=== PATIENT | male | born 1995 ===

== ENCOUNTER 2022-02-08 03:48 | Inpatient (IN) | payer MEDICAID ==
[2022-02-08] MEDS ORDERED: MAG HYDROX/AL HYDROX/SIMETH 30 ML CUP PO PRN (04:33)
[2022-02-08] MEDS ORDERED: HALOPERIDOL LACTATE 5 MG/ML 1 ML VIAL IM PRN (04:33)
[2022-02-08] MEDS ORDERED: ACETAMINOPHEN TAB 325 MG TAB PO PRN (04:33)
[2022-02-08] MEDS ORDERED: LORazepam 1 MG TAB PO PRN (04:33)
[2022-02-08] MEDS ORDERED: MAGNESIUM HYDROXIDE 2,400 MG/10 ML CUP PO PRN (04:33)
[2022-02-08] MEDS ORDERED: haloperidoL 5 MG TAB PO PRN (04:50)
[2022-02-08] MEDS ORDERED: LORazepam 2 MG/ML INJ IM PRN (04:50)
[2022-02-08] MEDS ORDERED: NICOTINE 14MG/24HR PATCH TRANSDERM SCH (09:00)
--- NOTE | 2022-02-08 18:00 | P.HPMEDMHU ---
History of Present Illness H&P Date: 02/08/22 Patient is a 26-year-old male with no known past medical history, alcohol dependency, and tobacco abuse who presented from [facility] for suicidal ideation and paranoia. Patient seen and examined at bedside. He reports feeling very anxious. He does not like people are new places him and make him feel very anxious and nervous. He is unsure if he should trust all of us. He reports to me that he fell about a month ago and has abrasions on his hand and his face and that he was on medications for this. He denies any recent cough, cold, fever, flu. He states he has been having some difficulty sleeping. He has been eating and drinking normally. Pertinent positives and negatives as discussed in HPI, a complete review of systems was performed and all other systems are negative. Vital signs reviewed General: nontoxic, no distress, appears at stated age Derm: warm, dry, multiple pinpoint abrasion on bilateral knuckles without warmth, erythema, drainage, healing abrasion on right zygomatic arch area. Head: atraumatic, normocephalic, symmetric Eyes: EOMI, no lid lag, anicteric sclera, pupils equal round reactive to light ENT: Nose and ears atraumatic, no thrush, no pharyngeal erythema Neck: No thyromegaly, no cervical lymphadenopathy, trachea midline, supple Mouth: no lip lesion, mucus membranes moist Cardiovascular: S1S2 reg, no murmur, positive posterior tibial pulse bilateral, no edema, capillary refill less than 2 seconds Lungs: clear to auscultation bilateral, no rhonchi, no rales, no wheeze, no accessory muscle use Abdominal: soft, nontender to palpation, no guarding, no appreciable organomegaly, normal bowel sounds Ext: no gross muscle atrophy, no contractures Neuro: CN II-XII grossly intact, no focal neuro deficits Psych: Alert, oriented, appears anxious, difficulty sitting Assessment/Plan: Abrasions on bilateral knuckles -Triple antibiotic cream 5 days Alcohol dependency -Last drink was 7 days ago -And seemed Ativan -Add thiamine and folic acid Tobacco abuse -Nicotine replacement Anxiety and suicidal ideation -Your psych management Thank you for allowing us to participate in the care of this pleasant patient. Do not hesitate to contact us with questions. Someone can be reached from the [facility] hospitalist group all hours of the day at [phone] or via [employer]. Medications and Allergies Allergies Allergy/AdvReac Type Severity Reaction Status Date / Time Penicillins AdvReac Unknown Verified 02/08/22 04:32 Physical Exam Osteopathic Statement: *. No significant issues noted on an osteopathic structural exam other than those noted in the History and Physical/Consult. Vitals: Intake and Output 02/08/22 02/08/22 02/08/22 06:59 14:59 22:59 Other: Weight 74 kg Cranial Nerve Examination - Cranial Nerves Cranial Nerve II- Optic: Intact Cranial Nerve III- Oculomotor: Intact Cranial Nerve IV- Trochlear: Intact Cranial Nerve V- Trigeminal: Intact Cranial Nerve - Abducens: Intact Cranial Nerve VII- Facial: Intact Cranial Nerve VIII- Auditory: Intact Cranial Nerve IX- Glossopharyngeal: Intact Cranial Nerve X- Vagus: Intact Cranial Nerve XI- Accessory: Intact Cranial Nerve XII- Hypoglossal: Intact
[2022-02-08] MEDS: NICOTINE GUM (POLACRILEX) 2 MG GUM BUCCAL PRN ×2 (18:17→21:59)
[2022-02-08] MEDS: BACITRACIN OINT 1 EACH PACKET TOPICAL SCH (20:41)
[2022-02-09] MEDS: FOLIC ACID 1 MG TAB PO SCH (09:19)
[2022-02-09] MEDS: THIAMINE 100 MG TAB PO SCH (09:20)
[2022-02-09] MEDS: BACITRACIN OINT 1 EACH PACKET TOPICAL SCH ×3 (09:24→20:06)
--- NOTE | 2022-02-09 14:43 | P.HP ---
Psychiatric H&P - . H&P Date: 02/09/22 History & Physical: Allergies Allergy/AdvReac Type Severity Reaction Status Date / Time Penicillins AdvReac Unknown Verified 02/08/22 20:57 Vital Signs Temp 98.4 F 02/09/22 07:00 Pulse 88 02/09/22 07:00 Resp 16 02/09/22 07:00 BP 108/54 02/09/22 07:00 Pulse Ox 100 02/08/22 15:15 FiO2 Intake & Output 02/08/22 02/09/22 02/09/22 18:59 06:59 18:59 Weight 73.164 kg 02/09/22 14:37 IDENTIFYING DATA: Patient is a 26-year-old -Lao male who is a transfer from [facility] for depression and suicidal thoughts, currently lives with his mother and siblings in a house. HPI: Patient presented to the hospital I think transfer from [facility] and arrived yesterday. Patient came on a petition and certificate. Patient apparently was endorsing depression and suicidal thoughts with a planned overdose on his medications. Patient was seen wandering the units are linear and agreeable to speak to web content writer in the office. Patient appeared to have poor eye contact appeared to be in mild distress. He states that he was at rehab at [facility]. He claims that he was not sleeping well, isolating himself and feeling depressed. He denied any significant triggers. He claims that he is feeling significantly depressed and anxious. He claims that he was having suicidal thoughts with a plan to overdose on pills. He claims that he told staff that and the brunt of the hospital. He states that he has a significant history of using crack cocaine daily and also drinking liquor about a fifth a day. He states his last drink was about 2 weeks ago. He claims that he is not on any psychiatric medications except taking Ativan as needed. He is denying any paranoia at this time. Denying any changes in appetite. Patient denies any current suicidal or homicidal ideations intent or plan. At this time patient denies any auditory or visual hallucinations. Patient denies any flight of ideas racing thoughts and increased in goal directed behavior. Patient admits to using alcohol as noted above, crack cocaine as noted above. Also smokes cigarettes daily and also marijuana frequently. PAST PSYCHIATRIC HISTORY: Patient states that he has a history of depression and anxiety and also polysubstance abuse. Patient denies being on any psychiatric medications. He states that he was at [facility] several years ago. Patient denies any psychiatric outpatient follow-up. He claims that he has 1 suicide attempt where he attempted to jump out of a window about 2 years ago. PMH: As per medicine H&P ALLERGIES: as per EMR CHEMICAL DEPENDENCY HISTORY: as per HPI FAMILY PSYCHIATRIC/SUBSTANCE USE HISTORY: denies SOCIAL HISTORY: Patient was born and raised in [place] and also [facility]. He claims that he got up to 11th grade in school. 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 He is currently unemployed. He states that he was imprisoned about 3 years ago for assault and also drug-related charges. He claims that he lives in a house with his mother, he also lives with his siblings and his stepfather. MENTAL STATUS EXAM: General Appearance: Patient appears to be a tall, thin, stated age is alert, appears to be in distress and poor eye contact. Patient appears to have poor hygiene and grooming. Behavior: Patient is seated without any agitated behavior. Attempts to cooperate, and distressed. Speech: Patient's speech is fluent and nonpressured. [place] and monotone Mood/Affect: Patient reports their mood is depressed and anxious, affect is congruent and constricted. Suicidality/Homicidality: Patient denies having any homicidal ideation intent or plan. Denies any suicidal ideations intent or plan Perceptions: Patient denies any visual hallucinations and denies any auditory hallucinations Though content/process: There is no evidence of any delusional thought content and thought process is linear and goal-directed. [place]. Focus on his depression and symptoms. Memory and concentration: AOX3, grossly intact for the purposes of this session. Can spell "WORLD" backwards Judgment and insight: poor STRENGTHS/WEAKNESSES: strength is that patient is resilient. Weakness is that patient has poor judgment and is impulsive INTELLECT: average IMPRESSIONS: Major depressive disorder, recurrent, severe without psychotic features. Anxiety disorder unspecified Cocaine use disorder severe Cannabis use disorder mild Alcohol use disorder Nicotine dependence PLAN: -Patient is admitted under voluntary status to [facility] for stabilization of psychiatric symptoms and safety. Patient has signed adult voluntary form and medication consent and is placed in patient's chart. -Medications : Will start patient on Zoloft 50 mg daily for mood/anxiety. Remeron 15 mg daily at bedtime for insomnia/appetite/mood. -Ativan and Haldol PRN for agitation/aggression -Patient was counselled on substance abuse and desired to cut back on use -Patient was informed of the risks, benefits and side effects of the medication and patient verbally consented to taking the medications. Patient signed med consent form and was placed in chart. -Internal Medicine consult to perform medical evaluation and physical. -NRT - nicotine patch -SW on board for discharge planning. Encourage patient to participate in groups to work on coping skills. We'll attempt to see if patient wants to go back to rehab upon discharge.
[2022-02-09] MEDS: SERTRALINE 50 MG TAB PO SCH (15:11)
[2022-02-09] MEDS: NICOTINE GUM (POLACRILEX) 2 MG GUM BUCCAL PRN ×2 (16:28→20:07)
[2022-02-09] MEDS: MIRTAZAPINE 15 MG TAB PO SCH (20:06)
[2022-02-10] MEDS: THIAMINE 100 MG TAB PO SCH (08:35)
[2022-02-10] MEDS: FOLIC ACID 1 MG TAB PO SCH (08:35)
[2022-02-10] MEDS: BACITRACIN OINT 1 EACH PACKET TOPICAL SCH ×4 (08:35→20:52)
[2022-02-10] MEDS: SERTRALINE 50 MG TAB PO SCH (08:35)
[2022-02-10] MEDS: NICOTINE GUM (POLACRILEX) 2 MG GUM BUCCAL PRN ×2 (12:04→20:07)
--- NOTE | 2022-02-10 15:55 | P.PN ---
Progress Note - Text Progress Note Date: 02/10/22 Clinical Problems: Major affective depressive disorder severe with anxious distress, cocaine use disorder severe, cannabis use disorder mild, alcohol use disorder unspecified, tobacco use Interim history: I reviewed the medical record and interviewed the patient. The patient stated that he is feeling much better. He did that the "nighttime medication has helped with my sleep and helped with my anxiety." He denied experiencing suicidal thoughts or wishes. He plans to return to [facility] after discharge but is concerned about how he will return since [facility] is in [facility]. He is attending therapeutic groups and activities. He is posed no management problems had no episodes of behavioral dyscontrol. He slept 8 hours last night. Mental status exam: He presented as a tall, thin casually groomed Georgian male who was pleasant on approach. He made eye contact and attended to the interview. He had a blunted but bright facial expression. He is alert and oriented to person, place and time. He had psychomotor retardation but no abnormal involuntary movements. His gait was slow but steady. His speech was spontaneous with decreased rate but normal volume. His affect was depressed but reactive. He denied suicidal ideation, wishes or homicidal ideation. He denied feeling hopeless, helpless or worthless. He ruminated about the circumstances that led to this hospitalization and how he would return to [facility]. He did not express ideas reference, paranoid ideation or delusions. His thinking was concrete but his associations were coherent, logical and goal directed. He denied hallucinations but did not appear to responding to internal stimuli. Assessment: He has minimally to moderately mentally ill much improved from admission. Plan: Continue inpatient treatment. Safety precautions. Continue current psychotropic medications-Remeron 15 mg at bedtime and Zoloft 50 mg daily. Haldol and/or Ativan when necessary IM when necessary for agitation, aggression acute psychosis. Nicorette gum for smoking cessation. Encouraged continued participation in therapeutic groups and activities. Evaluate clinical status response to treatment daily basis.
[2022-02-10] MEDS: MIRTAZAPINE 15 MG TAB PO SCH (20:53)
[2022-02-11] MEDS: FOLIC ACID 1 MG TAB PO SCH (08:04)
[2022-02-11] MEDS: THIAMINE 100 MG TAB PO SCH (08:04)
[2022-02-11] MEDS: BACITRACIN OINT 1 EACH PACKET TOPICAL SCH ×3 (08:04→21:12)
[2022-02-11] MEDS: SERTRALINE 50 MG TAB PO SCH (08:04)
--- NOTE | 2022-02-11 12:27 | P.PN ---
Progress Note - Text Progress Note Date: 02/11/22 Clinical Problems: Major affective depressive disorder severe with anxious distress, cocaine use disorder severe, cannabis use disorder mild, alcohol use disorder unspecified, tobacco use Interim history: I reviewed the medical record and interviewed the patient. He denied current problems or concerns. He denied experiencing suicidal thoughts or wishes. He wants to return to [facility] after discharge but is concerned about transportation since [facility] is in [facility]. He is attending therapeutic groups and activities. He is posed no management problems had no episodes of behavioral dyscontrol. He slept 8 hours last night. Mental status exam: He presented as a tall, thin casually groomed [place]otswan[place] male who was pleasant on approach. He made eye contact and attended to the interview. He had a blunted but bright facial expression. He was alert and oriented to person, place and time. He had psychomotor retardation but no abnormal involuntary movements. His gait was slow but steady. His speech was spontaneous with decreased rate but normal volume. His affect was depressed but reactive. He denied suicidal ideation, wishes or homicidal ideation. He denied feeling hopeless, helpless or worthless. He ruminated about the circumstances that led to this hospitalization and how he would return to [facility]. He did not express ideas reference, paranoid ideation or delusions. His thinking was concrete but his associations were coherent, logical and goal directed. He denied hallucinations but did not appear to responding to internal stimuli. Assessment: He has minimally to moderately mentally ill andmuch improved from admission. Plan: Continue inpatient treatment. Safety precautions. Continue current psychotropic medications-Remeron 15 mg at bedtime and Zoloft 50 mg daily. Haldol and/or Ativan when necessary IM when necessary for agitation, aggression acute psychosis. Nicorette gum for smoking cessation. Encouraged continued participation in therapeutic groups and activities. Evaluate clinical status response to treatment daily basis.
[2022-02-11] MEDS ORDERED: FLUTICASONE 50MCG/SPRAY NASAL 16GM EA NOSTRIL PRN (13:19)
[2022-02-11] MEDS: NICOTINE GUM (POLACRILEX) 2 MG GUM BUCCAL PRN ×2 (13:57→19:40)
[2022-02-11] MEDS: MIRTAZAPINE 15 MG TAB PO SCH (20:54)
[2022-02-12] MEDS: FOLIC ACID 1 MG TAB PO SCH (08:47)
[2022-02-12] MEDS: SERTRALINE 50 MG TAB PO SCH (08:47)
[2022-02-12] MEDS: THIAMINE 100 MG TAB PO SCH (08:47)
[2022-02-12 08:48] VITALS: BP 130/75; PULSE 71; RESP 16; TEMP 98
[2022-02-12] MEDS: BACITRACIN OINT 1 EACH PACKET TOPICAL SCH (08:48)
[2022-02-12] MEDS: NICOTINE GUM (POLACRILEX) 2 MG GUM BUCCAL PRN (09:55)
--- NOTE | 2022-02-12 10:03 | P.DS ---
Providers Date of admission: 02/08/22 15:02 Expected date of discharge: 02/12/22 Attending physician: Chris Gallagher MD Consults: 02/08/22 04:33 Consult Physician Routine Consulting Provider: Cassidy Hess Consult Reason/Comments: medical management, H&P Do you want consulting provider notified?: Yes Primary care physician: Stated None - Discharge Diagnosis(es) (1) Major depressive disorder without psychotic features Current Visit: Yes Status: Acute Priority: High (2) Anxiety disorder, unspecified Current Visit: Yes Status: Acute Priority: Medium (3) Cocaine use disorder, severe, dependence Current Visit: Yes Status: Acute Priority: High (4) Cannabis use disorder, mild, abuse Current Visit: Yes Status: Acute Priority: Low (5) Alcohol use disorder Current Visit: Yes Status: Acute Priority: Medium (6) Nicotine dependence Current Visit: Yes Status: Acute Priority: Low Hospital Course: Admission HPI: Admission note was completed by parts data writer "Patient is a 26-year-old -Amer ican male who is a transfer from [facility] for depression and suicidal thoughts, currently lives with his mother and siblings in a house. Patient presented to the hospital I think transfer from [facility] and arrived yesterday. Patient came on a petition and certificate. Patient apparently was endorsing depression and suicidal thoughts with a planned overdose on his medications. Patient was seen wandering the units are linear and agreeable to speak to parts data writer in the office. Patient appeared to have poor eye contact appeared to be in mild distress. He states that he was at rehab at [facility]. He claims that he was not sleeping well, isolating himself and feeling depressed. He denied any significant triggers. He claims that he is feeling significantly depressed and anxious. He claims that he was having suicidal thoughts with a plan to overdose on pills. He claims that he told staff that and the brunt of the hospital. He states that he has a sig nificant history of using crack cocaine daily and also drinking liquor about a fifth a day. He states his last drink was about 2 weeks ago. He claims that he is not on any psychiatric medications except taking Ativan as needed. He is denying any paranoia at this time. Denying any changes in appetite. Patient denies any current suicidal or homicidal ideations intent or plan. At this time patient denies any auditory or visual hallucinations. Patient denies any flight of ideas racing thoughts and increased in goal directed behavior. Patient admits to using alcohol as noted above, crack cocaine as noted above. Also smokes cigarettes daily and also marijuana frequently. " Hospital course: Upon admission to the unit patient was directable and agreeable to commence treatment and signed adult voluntary form . Patient got along well with other patients on the unit and followed unit protocol. Patient was compliant with the medications and denied any side effects throughout hospital course. Patient was started on Zoloft 50 mg daily for mood sessions IV, Remeron 15 mg daily at bedtime for insomnia/appetite/mood.. Patient spoke of his stressors and engaged in therapy both group and individual. Patient was also seen by medical team for history and physical exam. Throughout the course of the hospitalization patient gradually improved with regards to mood, anxiety, sleep and returned back to their baseline level of functioning. On the day of discharge patient denied any suicidal or homicidal ideations intent or plan denied any auditory or visual hallucinations. Patient endorsed wanting to live for his health, sobriety and family. The patient denied any access to guns or weapons. Patient denied any paranoia and did not endorse any delusions. Patient does have a significant history of substance abuse and was counseled on abstaining from all substances including alcohol and marijuana. Patient came from [facility] rehab and will attempt to get back into the program and will be calling today with social work instructor to get a bad in the next couple of days. Until then patient will be discharged to his father's house in [place] while awaiting his bed at rehab. Patient was also counseled on the medications and need for regular compliance and was encouraged to follow-up with their outpatient appointment for mental health and also for primary care. Prior to discharge a family meeting will be arranged by social work instructor to answer any questions and ensure safety upon discharge. Mental status exam: General Appearance: Patient appears to be thin, stated age is alert, pleasant, and cooperative. Patient is in no acute distress and has improved hygiene and grooming Behavior: Patient is calmly seated without any agitated behavior. Speech: Patient's speech is fluent and nonpressured. Mood/Affect: Patient reports their mood is "good", affect is congruent and euthymic. Suicidality/Homicidality: Patient denies having any suicidal or homicidal ideation intent or plan. Perceptions: Patient denies any auditory or visual hallucinations. Though content/process: There is no evidence of any delusional thought content and thought process is linear and goal-directed. more future oriented Memory and concentration: AOX3, grossly intact for the purposes of this session. Can spell "WORLD" backwards correctly. Judgment and insight: chronically poor, however has improved with guarded prognosis Impression: Major depressive disorder, without psychotic features Anxiety disorder unspecified Cocaine use disorder severe dependence Cannabis use disorder mild Alcohol use disorder Nicotine dependence Plan: -Continue with discharge today as patient has improved and stabilized psychiatrically and is not currently an imminent threat to himself and/or others. Patient will remain at chronically elevated risk for harm to self and/or others due to his impulsivity and polysubstance abuse. -Continue medications: Zoloft 50 mg daily for mood/anxiety, Remeron 15 mg daily at bedtime for insomnia/mood. -Patient was counseled on the need for medication compliance and appropriate follow-up at mental health and also primary care for medical issues. Patient verbalized understanding and agreed. -Social work to arrange for and conduct family meeting to ensure safety upon discharge and answer any questions/concerns. Social work also to arrange for patients follow up appointments for psychiatric care along with follow up with primary care provider. -Patient counseled on abstaining from recreational drugs and marijuana and alcohol. Was informed/educated on the adverse effects on their physical and mental health. Patient verbally agreed and understood. The patient will be attempting to get back into [facility] rehab for substance use treatment within the next couple of days. -Patient was instructed to return to the hospital or seek immediate medical care if their psychiatric or medical symptoms do worsen or reoccur. Allergies Allergy/AdvReac Type Severity Reaction Status Date / Time Penicillins AdvReac Unknown Verified 02/08/22 20:57 Vital Signs Temp 98.0 F 02/12/22 08:48 Pulse 71 02/12/22 08:48 Resp 16 02/12/22 08:48 BP 130/75 02/12/22 08:48 Pulse Ox 98 02/11/22 06:57 FiO2 Patient Condition at Discharge: Stable Plan - Discharge Summary Discharge Rx Participant: No New Discharge Prescriptions: New Fluticasone Nasal Sullivan [Flonase Nasal Sullivan] 2 spray EA NOSTRIL DAILY PRN #1 ml PRN Reason: Allergy Symptoms Folic Acid 1 mg PO DAILY 30 Days tab Nicotine Gum (Polacrilex) [Nicorette] 2 mg BUCCAL Q4HR PRN 28 Days pieceofgum PRN Reason: Nicotine Cravings Mirtazapine [Remeron] 15 mg PO HS 30 Days tab Thiamine [Vitamin B-1] 100 mg PO DAILY 30 Days tab Sertraline [Zoloft] 50 mg PO DAILY 30 Days tab Discharge Medication List Fluticasone Nasal Sullivan [Flonase Nasal Sullivan] 2 spray EA NOSTRIL DAILY PRN #1 ml 02/12/22 [Rx] Folic Acid 1 mg PO DAILY 30 Days tab 02/12/22 [Rx] Mirtazapine [Remeron] 15 mg PO HS 30 Days tab 02/12/22 [Rx] Nicotine Gum (Polacrilex) [Nicorette] 2 mg BUCCAL Q4HR PRN 28 Days pieceofgum 02/12/22 [Rx] Sertraline [Zoloft] 50 mg PO DAILY 30 Days tab 02/12/22 [Rx] Thiamine [Vitamin B-1] 100 mg PO DAILY 30 Days tab 02/12/22 [Rx] Follow up Appointment(s)/Referral(s): [facility]Other] - 1 Week Patient Instructions/Handouts: How to Stop Smoking (DC), Depression (DC) Activity/Diet/Wound Care/Special Instructions: Avoid the use of street drugs and alcohol. Take all prescriptions as prescribed. When you are in need of refills on your medications, please contact your medical provider and/or outpatient psychiatrist to have this done. Please go to scheduled outpatient appointment for aftercare treatment. If symptoms return or become worse, call the crisis line at and/or go to the nearest emergency room for evaluation. Discharge Disposition: HOME SELF-CARE
== END 2022-02-12 13:44 | disposition home or self-care (01) | DRG 885 ==
LOC: 3MHU 15:02
PROVIDERS: ADMIT Psychiatry & Neurology Psychiatry; ATTEND Psychiatry & Neurology Psychiatry
DX: F33.2 Major depressive disorder, recurrent severe without psychotic features (principal); F14.20 Cocaine dependence, uncomplicated; R45.851 Suicidal ideations; Z28.310 Unvaccinated for COVID-19; F10.10 Alcohol abuse, uncomplicated; F41.9 Anxiety disorder, unspecified; F12.10 Cannabis abuse, uncomplicated; F17.210 Nicotine dependence, cigarettes, uncomplicated; Z71.6 Tobacco abuse counseling; G47.00 Insomnia, unspecified; S60.419A Abrasion of unspecified finger, initial encounter; Z71.41 Alcohol abuse counseling and surveillance of alcoholic; Z71.51 Drug abuse counseling and surveillance of drug abuser; Z56.0 Unemployment, unspecified